=== PATIENT | male | born 1985 | race American Indian/Alaskan Native ===

== ENCOUNTER 2020-01-16 15:48 | Emergency (ER) | payer SELFPAY ==
--- NOTE | 2020-01-16 17:28 | Event Note ---
ED Screening Note Date of service: 01/16/20 Time: 17:24 ED Screening Note: This is a 34 y.o. M. that presents to the ER with left hip pain, right thigh pain, and BLE swelling x 3 days. States calfs feel heavy, tight, and like a cramp is stuck in both legs. Denies CP, SOB, palpitations This initial assessment/diagnostic orders/clinical plan/treatment(s) is/are subject to change based on patients health status, clinical progression and re- assessment by fellow clinical providers in the ED. Further treatment and workup at subsequent clinical providers discretion. Patient/guardian urged not to elope from the ED as their condition may be serious if not clinically assessed and managed. Initial orders include: Doppler BLE
[2020-01-16] MEDS ORDERED: ONDANSETRON 4 MG/2 ML INJ IM ONE (18:33)
[2020-01-16] MEDS ORDERED: MORPHINE 4 MG/1 ML INJ IM ONE (18:33)
--- NOTE | 2020-01-16 18:37 | Emergency Department Report ---
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 Patient also had history of arthritis and gouty arthritis. Patient presented to the ER complaining of back pain, bilateral hip pain and bilateral lower extremity pain and swelling for the last 3 days. Patient denied any recent injury. Patient is a wheelchair ridden. Patient denied any fever or chills. Patient denied any chest pain or shortness of breath. No abdominal pain nausea or vomiting. - Related Data Allergies Allergy/AdvReac Type Severity Reaction Status Date / Time codeine Allergy Unknown Verified 01/16/20 15:56 ED Review of Systems ROS: Stated complaint: UPPER PAIN/RT THIGH PAIN/HIP PAIN Other details as noted in HPI Comment: All other systems reviewed and negative Constitutional: denies: chills, fever Respiratory: denies: shortness of breath Cardiovascular: denies: chest pain Gastrointestinal: denies: abdominal pain, nausea, vomiting Musculoskeletal: back pain, arthralgia, myalgia Neurological: denies: headache, weakness, numbness, paresthesias, confusion ED Past Medical Hx - Social History Smoking Status: Never Smoker Substance Use Type: None ED Physical Exam - General Limitations: No Limitations General appearance: alert, in no apparent distress - Head Head exam: Present: atraumatic, normocephalic, normal inspection - Eye Eye exam: Present: normal appearance - ENT ENT exam: Present: normal exam, normal orophraynx, mucous membranes moist - Neck Neck exam: Absent: normal inspection, tenderness, meningismus, full ROM, lymphadenopathy, thyromegaly - Respiratory Respiratory exam: Present: normal lung sounds bilaterally - Cardiovascular Cardiovascular Exam: Present: regular rate, normal rhythm, normal heart sounds - GI/Abdominal GI/Abdominal exam: Present: soft, normal bowel sounds. Absent: distended, tenderness, guarding, rebound, rigid, organomegaly, bruit, pulsatile mass, hernia - Extremities Exam Extremities exam: Present: normal inspection, full ROM, normal capillary refill. Absent: tenderness, pedal edema, joint swelling, calf tenderness - Back Exam Back exam: Present: normal inspection, full ROM. 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 Patient also had history of arthritis and gouty arthritis. Patient presented to the ER complaining of back pain, bilateral hip pain and bilateral lower extremity pain and swelling for the last 3 days. Patient denied any recent injury. Patient is a wheelchair ridden. Patient denied any fever or chills. Patient denied any chest pain or shortness of breath. No abdominal pain nausea or vomiting. Patient received morphine and Zofran. Patient stated the pain is much better. No Doppler ultrasound study available at night and patient given prescription to return to the hospital tomorrow morning for bilateral lower extremity Doppler ultrasound meanwhile patient given 1 tablets of Xorelto 20 mg p.o. and observed in the ER for more than 2 hours with no bleeding observed. Critical care attestation.: If time is entered above; I have spent that time in minutes in the direct care of this critically ill patient, excluding procedure time. ED Disposition Clinical Impression: Back pain, Swelling of both lower extremities Disposition: - TO HOME OR SELFCARE Is pt being admited?: No Condition: Stable Instructions: Arthralgia (ED) Additional Instructions: Please return to the hospital tomorrow for a Doppler ultrasound to make sure that you do not have any blood clots in your legs. Referrals: PRIMARY CARE, [Primary Care Provider] - 3-5 Days
[2020-01-16] MEDS ORDERED: RIVAROXABAN 20 MG TAB PO ONE (20:00)
[2020-01-16 23:03] VITALS: BP 120/78
--- NOTE | 2020-01-17 11:03 | Vascular Lab Report ---
DUPLEX DOPPLER LOWER EXTREMITY VEINS, BILATERAL INDICATION: Bilateral leg pain and swelling. TECHNIQUE: Duplex doppler imaging was performed through the veins of both lower extremities using venous tonny jaymie and other maneuvers. COMPARISON: None available. FINDINGS: Right Common femoral vein: Negative. Right Superficial femoral vein: Negative. Right Popliteal vein: Negative. Right Calf veins: Negative. Left Common femoral vein: Negative. Left Superficial femoral vein: Negative. Left Popliteal vein: Negative. Left Calf veins: Negative. Additional findings: There is no evidence of a popliteal cyst or other significant abnormality. IMPRESSION: No sonographic evidence for DVT in either lower extremity. Signer Name: Jose Bentley MD Signed: 01/17/2020 10:59 AM Workstation Name: [id number]
== END 2020-01-16 23:03 | disposition home or self-care (01) ==
LOC: ED 15:48
DX: M54.9 Dorsalgia, unspecified (principal); M79.89 Other specified soft tissue disorders; M25.551 Pain in right hip; M25.552 Pain in left hip
CPT/HCPCS: 93970; 96372; 99284; J2270; J2405

== ENCOUNTER 2020-01-20 21:37 | Emergency (ER) | payer MEDICAID ==
--- NOTE | 2020-01-21 00:49 | Emergency Department Report ---
HPI - General Chief Complaint: Back Pain/Injury Time Seen by Provider: 01/21/20 00:00 - HPI HPI: This is a 34-year-old -[place] male with a past medical history of osteogenesis imperfecta, adult dwarfism, gout and schizophrenia, who presents to the emergency department with complaint of mid to low back pain, bilateral hip pain and lower extremity swelling. This been going on since the patient fell backwards in his wheelchair, as he is wheelchair-bound, while on a train 3 weeks ago. The patient was seen here for similar complaints 5 days ago on 01/16/2020. At that time the patient had negative bilateral venous Doppler ultrasounds and was treated with some pain medication and discharged home. The patient denies any further or recent trauma but says that his pain has come back. He also complains of having some panic attacks. Patient treats this with alcohol and says he had 4 margaritas today. He denies any suicidal or homicidal ideations or any hallucinations. ED Past Medical Hx - Past Medical History Previous Medical History?: Yes Hx Hypertension: Yes Hx Psychiatric Treatment: Yes (schizoprenia, depression) Additional medical history: gout, chronic pain. osteogenesis imperfecta - Surgical History Past Surgical History?: Yes Additional Surgical History: knee and back surgery - Social History Smoking Status: Never Smoker Substance Use Type: Alcohol - Medications Home Medications: Home Medications Medication Instructions Recorded Confirmed Last Taken Type Naproxen [Naprosyn] 500 mg PO BID #14 tablet 01/16/20 Unknown Rx ED Review of Systems ROS: Stated complaint: PANIC ATTACK BACK PAIN SWELLING IN BOTH LEGS Other details as noted in HPI Comment: All other systems reviewed and negative Constitutional: denies: chills, fever Eyes: denies: eye pain, vision change ENT: denies: ear pain, throat pain Respiratory: denies: cough, shortness of breath Cardiovascular: denies: chest pain, palpitations Gastrointestinal: denies: nausea, vomiting Genitourinary: denies: dysuria, discharge Musculoskeletal: back pain, arthralgia, myalgia Skin: denies: rash, lesions Neurological: denies: headache, weakness, numbness Physical Exam - Physical Exam Vital Signs: Vital Signs 01/20/20 23:27 Temperature 98.6 F Pulse Rate 89 Respiratory 16 Rate Blood Pressure 154/81 O2 Sat by Pulse 99 Oximetry Physical Exam: GENERAL: The patient is well-developed well-nourished. HENT: Normocephalic. Atraumatic. Patient has moist mucous membranes. EYES: Extraocular motions are intact. NECK: Supple. Trachea is midline. CHEST/LUNGS: Clear to auscultation. There is no respiratory distress noted. HEART/CARDIOVASCULAR: Regular. There is no tachycardia. ABDOMEN: Abdomen is soft, nontender. Patient has normal bowel sounds. SKIN: Skin is warm and dry. NEURO: The patient is awake, alert, and oriented. The patient is cooperative. Normal speech. MUSCULOSKELETAL: There is some tenderness to palpation to the left hip but no obvious acute deformity. BACK: There is no midline thoracic or lumbar tenderness to palpation, step-off or deformity. There is some reproducible left lower thoracic and lumbar paraspinal tenderness to palpation. ED Course Vital Signs 01/20/20 23:27 Temperature 98.6 F Pulse Rate 89 Respiratory 16 Rate Blood Pressure 154/81 O2 Sat by Pulse 99 Oximetry ED Medical Decision Making - Lab Data Result diagrams: 01/21/20 00:28 01/21/20 00:28 - Radiology Data Radiology results: report reviewed BILATERAL HIPS, 3 VIEWS INDICATION / CLINICAL INFORMATION: hip pain, history of osteogenesis imperfecta. COMPARISON: None available. FINDINGS: Left hip: 2 screws are present through the femoral neck. An intramedullary georgiana is present in the left femur. Mild degenerative changes are present in the left hip joint but I see no acute abnormality. The visualized hardware is intact. Right hip: Intramedullary georgiana is present in the right femur. The visualized portion of the georgiana is intact. There is sclerosis of the right superior pubic ramus and a portion of acetabulum which probably indicates old healed fracture. No acute fracture of the pelvis or hips is identified. The bones are demineralized. IMPRESSION: 1. No acute osseous abnormality. 2. Bilateral hip hardware. - Medical Decision Making This patient, with a history of adult dwarfism and osteogenesis imperfecta, presents to the emergency department with a complaint of some left-sided back pain, hip pain and some radiation into the thighs. The patient had a fall out of his wheelchair almost 3 weeks ago and has been evaluated multiple times since then including at this facility 5 days ago. At that time the patient was also complaining of some lower extremity swelling but had bilateral lower extremity venous Doppler ultrasounds that were negative for DVT. Today, the patient had an x-ray done of the bilateral hips and pelvis that did not show any acute osse ous abnormality. His labs were unremarkable including CBC, metabolic panel, CK level and blood alcohol level. Patient was given a dose of pain medication with good improvement of his discomfort. His vital signs been stable throughout his ED course. He appears safe for discharge home at this time. However the patient is homeless and says he will need a bus pass or some transport assistance. - Differential Diagnosis Contusion, fracture, muscle spasms Critical Care Time: No Critical care attestation.: If time is entered above; I have spent that time in minutes in the direct care of this critically ill patient, excluding procedure time. ED Disposition Clinical Impression: Hip pain, bilateral Back pain Qualifiers: Back pain location: back pain in unspecified location Chronicity: unspecified Back pain laterality: left Qualified Code(s): M54.9 - Dorsalgia, unspecified Disposition: DC-01 TO HOME OR SELFCARE Is pt being admited?: No Condition: Stable Instructions: Arthralgia (ED), Back Pain (ED) Additional Instructions: Please follow-up with your primary care physician in the next few days. I am giving you a referral for 2 different local orthopedic groups, Dr. Hernandez and [facility], to follow-up regarding your back and hip pains. Return to the emergency department with any worsening of your symptoms or any acute distress. Referrals: PRIMARY MD ZOE [Primary Care Provider] - 3-5 Days CONCHA HERNANDEZ MD [Staff Physician] - 3-5 Days [facility] [Provider Group] - 3-5 Days Time of Disposition: 02:42
[2020-01-21 00:55] LABS: Basophils % (Auto) 0.4 % (0.0-1.8); Eosinophils # (Auto) 0.4 K/mm3 (0.0-0.4); Eosinophils % (Auto) 7.4 % (0.0-4.3); Hematocrit 33.9 % (35.5-45.6); Hemoglobin 10.5 gm/dl (11.8-15.2); Lymphocytes # (Auto) 2.1 K/mm3 (1.2-5.4); Lymphocytes % (Auto) 43.8 % (13.4-35.0); Mean Corpuscular HGB Conc 31 % (32-34); Mean Corpuscular Volume 73 fl (84-94); Monocytes # (Auto) 0.5 K/mm3 (0.0-0.8); Monocytes % (Auto) 9.5 % (0.0-7.3); Platelet Count 236 K/mm3 (140-440); Red Blood Count 4.62 M/mm3 (3.65-5.03); Red Cell Distribution Width 14.6 % (13.2-15.2)
[2020-01-21 01:10] LABS: BUN/Creatinine Ratio 30; Blood Urea Nitrogen 12 mg/dL (9-20); Calcium 9.5 mg/dL (8.4-10.2); Hemolysis Index 6
[2020-01-21] MEDS ORDERED: MORPHINE 4 MG/1 ML INJ IM ONE (01:44)
--- NOTE | 2020-01-21 01:48 | XRay Report ---
BILATERAL HIPS, 3 VIEWS INDICATION / CLINICAL INFORMATION: hip pain, history of osteogenesis imperfecta. COMPARISON: None available. FINDINGS: Left hip: 2 screws are present through the femoral neck. An intramedullary georgiana is present in the left femur. Mild degenerative changes are present in the left hip joint but I see no acute abnormality. T he visualized hardware is intact. Right hip: Intramedullary georgiana is present in the right femur. The visualized portion of the georgiana is int act. There is sclerosis of the right superior pubic ramus and a portion of acetabulum which probably indicates old healed fracture. No acute fracture of the pelvis or hips is identified. The bones are demineralized. IMPRESSION: 1. No acute osseous abnormality. 2. Bilateral hip hardware. Signer Name: Fay Escudero MD Signed: 01/21/2020 1:43 AM Workstation Name: [id number]
[2020-01-21] MEDS ORDERED: ONDANSETRON 4 MG ODT TAB PO ONE (01:50)
[2020-01-21 08:02] VITALS: BP 136/87
== END 2020-01-21 08:02 | disposition home or self-care (01) ==
LOC: ED 21:37
DX: M25.552 Pain in left hip (principal); M25.551 Pain in right hip; M54.5 Low back pain; I10 Essential (primary) hypertension; F20.9 Schizophrenia, unspecified; F32.9 Major depressive disorder, single episode, unspecified; Z98.890 Other specified postprocedural states; Z79.899 Other long term (current) drug therapy; Z88.8 Allergy status to other drugs, medicaments and biological substances
CPT/HCPCS: 36415; 73521; 80048; 82550; 85025; 96372; 99284; J2270; 80320; G0480; Q0162

== ENCOUNTER 2020-02-26 22:15 | Emergency (ER) | payer MEDICAID ==
[2020-02-26] MEDS ORDERED: oxyCODONE /ACETAMINOPHEN 5-325MG TAB PO ONE (23:43)
[2020-02-26] MEDS ORDERED: predniSONE 20 MG TAB PO ONE (23:43)
--- NOTE | 2020-02-26 23:47 | Emergency Department Report ---
ED General Adult HPI - General Chief complaint: Back Pain/Injury Stated complaint: BACK PAIN HIP PAIN ANXIETY Time Seen by Provider: 02/26/20 23:32 Source: patient Mode of arrival: Wheelchair Limitations: No Limitations - History of Present Illness Initial comments: 34-year-old -French male wheelchair dependent presents emergency department complaining of continued pain to the hip and groin region which is been ongoing for about the last 5 weeks he is under the care of his family practice doctor due to a fall about 5 weeks ago with normal x-rays. He reports no change in his bowel or bladder habits. No change in his sensation or other neurological functions. He reports no dysuria, no hematuria no gastrointestinal changes there is no rashes no possibility of an STD no fever, chills, sweats no chest pain or palpitations no loss of bowel or bladder no saddle paresthesia. Pain is worse with palpation and certain range of motion and ease with anti- inflammatories and pain medication which he is running low at this present time. States that his primary concern is his primary pain control as he does have follow-up arranged. He reports no new injuries no worsening symptoms or no new symptoms since the initial onset - Related Data Previous Rx's Medication Instructions Recorded Last Taken Type Naproxen [Naprosyn] 500 mg PO BID #14 tablet 01/16/20 Unknown Rx Cyclobenzaprine [Flexeril] 10 mg PO QHS PRN #5 tablet 02/16/20 Unknown Rx Naproxen 500 mg PO Q12H PRN #10 tablet 02/16/20 Unknown Rx Allergies Allergy/AdvReac Type Severity Reaction Status Date / Time codeine Allergy Unknown Verified 01/16/20 15:56 ED Review of Systems ROS: Stated complaint: BACK PAIN HIP PAIN ANXIETY Other details as noted in HPI Comment: All other systems reviewed and negative ED Past Medical Hx - Past Medical History Previous Medical History?: Yes Hx Hypertension: Yes Hx Psychiatric Treatment: Yes (schizoprenia, depression) Additional medical history: gout, chronic pain. osteogenesis imperfecta - Surgical History Past Surgical History?: Yes Additional Surgical History: knee and back surgery - Social History Smoking Status: Never Smoker Substance Use Type: Alcohol - Medications Home Medications: Home Medications Medication Instructions Recorded Confirmed Last Taken Type Naproxen [Naprosyn] 500 mg PO BID #14 tablet 01/16/20 Unknown Rx Cyclobenzaprine [Flexeril] 10 mg PO QHS PRN #5 tablet 02/16/20 Unknown Rx Naproxen 500 mg PO Q12H PRN #10 tablet 02/16/20 Unknown Rx ED Physical Exam - General Limitations: No Limitations General appearance: alert, in no apparent distress - Head Head exam: Present: atraumatic, normocephalic - Eye Eye exam: Present: normal appearance - Neck Neck exam: Present: normal inspection - Extremities Exam Extremities exam: Present: tenderness (Tenderness to the left hip and and inguinal region with no lymphadenopathy. No inguinal herniations are noted. No skin issues are noted. No tenderness to the lower abdominal region.) - Neurological Exam Neurological exam: Present: alert, CN II-XII intact ED Course Vital Signs 02/26/20 22:24 Temperature 98.0 F Pulse Rate 102 H Respiratory 20 Rate Blood Pressure 137/80 O2 Sat by Pulse 99 Oximetry ED Medical Decision Making - Medical Decision Making 34-year-old male with chronic pain to his left hip is under the care of his primary care provider with follow-up arranged seeking analgesic control of his hip with no new or worsening since his symptoms no change in symptoms regarding his hip. He reports no urinary symptoms no recent injury. Rx indicate he has a pre-existing hip hardware which was abnormal of variation in January 2020 he was in the emergency department and 10 days ago with back pain had a normal thoracic x-ray and questionable coccyx fracture on the lumbar series. Again Mr. Hills reports no new or worsening symptoms no change in symptoms since his initial onset Critical care attestation.: If time is entered above; I have spent that time in minutes in the direct care of this critically ill patient, excluding procedure time. ED Disposition Clinical Impression: Chronic pain, Hip pain Disposition: DC-01 TO HOME OR SELFCARE Is pt being admited?: No Does the pt Need Aspirin: No Condition: Stable Instructions: Arthralgia (ED) Additional Instructions: Please return to your primary care provider for further evaluation and treatment options Referrals: JENNY RAMIREZ MD [Primary Care Provider] - 3-5 Days
[2020-02-27 05:35] VITALS: BP 136/85
== END 2020-02-27 05:28 | disposition home or self-care (01) ==
LOC: ED 22:15
DX: M25.552 Pain in left hip (principal); R10.32 Left lower quadrant pain; G89.29 Other chronic pain; I10 Essential (primary) hypertension; F20.89 Other schizophrenia; F32.89 Other specified depressive episodes; M10.9 Gout, unspecified; Z98.890 Other specified postprocedural states; Z79.899 Other long term (current) drug therapy; Z88.6 Allergy status to analgesic agent
CPT/HCPCS: 99282; J7512

== ENCOUNTER 2020-03-04 19:52 | Emergency (ER) | payer MEDICAID ==
[2020-03-04 20:01] VITALS: BP 151/94
[2020-03-05] MEDS ORDERED: ACETAMINOPHEN 325 MG TAB PO ONE (01:04)
--- NOTE | 2020-03-05 01:04 | Emergency Department Report ---
Chief Complaint: Back Pain/Injury Stated Complaint: UPPER/LOWER BACK PAIN Time Seen by Provider: 03/05/20 01:02 - HPI History of Present Illness: Patient is a 34-year-old male who presents emergency room with complaints of upper and lower back pain that began "over a month ago." Patient has been evaluated in the emergency department on multiple occasions for the same complaints. He denies any new fall or injury. He denies any numbness, weakness, bowel or bladder incontinence, saddle numbness, fever, n/v/d. He reports that he had a telemedicine visit with an orthopedic last week, I inquired what the plan was for his chronic back pain, and patient did not have an answer whether he was going to physical therapy or spine injections or any treatments. He has not tried taking any medications for his symptoms. Initial triage vitals with tachycardia, on repeat heart rate is completely normal Upon entering the room patient is sleeping comfortably On exam: Non toxic appearing, no acute distress atraumatic, normocephalic normal appearance of the eyes, PERRL, EOMI, no periorbital edema or ecchymosis moist mucus membranes regular heart rate and rhythm, no gallops, no rubs, no murmurs breath sounds are clear bilaterally, no w/r/r No midline spinal C-spine, T-spine, L-spine tenderness to palpation, no step- offs, no deformities A&O x4, no focal neuro deficit skin is warm, dry, intact Patient has no red flag warning signs of back pain No midline tenderness, no neuro deficits No signs of conus medullaris or cauda equina No fever, no IV drug use Patient is presenting with chronic back pain He has not attempted any treatments Patient will be given Tylenol discussed supportive care and symptomatic treatment with patient Patient will again be referred to orthopedic doctor for further evaluation and management Medical screening examination performed and there is no threat to life or limb at this time - Exam Vital Signs: Vital Signs 03/04/20 19:57 Temperature 98.1 F Pulse Rate 118 H Respiratory 18 Rate Blood Pressure 151/94 O2 Sat by Pulse 100 Oximetry MSE screening note: Focused history and physical exam performed. ED Disposition for MSE Clinical Impression: Chronic back pain Qualifiers: Back pain location: back pain in other location Qualified Code(s): M54.9 - Dorsalgia, unspecified Disposition: Z-07 MED SCREENING EXAM-LEFT Condition: Stable Instructions: Chronic Back Pain (ED) Additional Instructions: May alternate Tylenol or ibuprofen as needed for pain. May use ice pack, heating pad, rest. Follow-up with orthopedic doctor. It is very important that you follow-up with orthopedic doctor for further evaluation and management. Return to emergency room for any new or worsening symptoms. Referrals: CONCHA FAM MD [Staff Physician] - 3-5 Days [facility] [Provider Group] - 3-5 Days asya, orthopedic [Other] - 3-5 Days Time of Disposition: 01:04 Print Language: GERMAN
== END 2020-03-05 01:11 | disposition left against medical advice (07) ==
LOC: ED 19:52
DX: M54.89 Other dorsalgia (principal); G89.29 Other chronic pain
CPT/HCPCS: 99281

== ENCOUNTER 2020-04-23 20:55 | Emergency (ER) | payer MEDICAID ==
[2020-04-23] MEDS ORDERED: dexAMETHasone 20 MG/5 ML VIAL IM ONE (21:58)
[2020-04-23] MEDS ORDERED: KETOROLAC 30 MG/1 ML INJ IM ONE (21:58)
[2020-04-23] MEDS ORDERED: MORPHINE 15 MG TAB PO ONE (21:59)
--- NOTE | 2020-04-23 23:40 | Emergency Department Report ---
ED Back Pain/Injury HPI - General Chief Complaint: Extremity Injury, Lower Stated Complaint: BACK PAIN/FOOT PAIN/ Source: patient Limitations: No Limitations - History of Present Illness Initial Comments: Patient is a 34-year-old -[place] male with a history of spina bifida and chronic low back pain and who is dependent on a wheelchair for ambulation who presents to the ED with complaint of acute exhibition of his chronic low back pain that radiates to his bilateral lower extremities after straining in his wheelchair about 2 days ago. Patient states that he usually takes Percocet 10-325 mg and gabapentin but that since twisting his back 2 days ago these medications have not helped control his pain. Patient states that he has an appointment with his pain clinic in 1 week's time. Patient denies dysuria, urinary frequency and urgency, dizziness, syncope, chest pain, shortness of breath, testicular pain, urinary or bowel incontinence, fall, traumatic injury, numbness and tingling or weakness of lower extremities bilaterally, fever, chills, abdominal pain or syncope. MD Complaint: back pain, other (Low back pain that radiates to the lower extremities bilaterally) -: Sudden, days(s) (2) Place: home Radiation: left leg, right leg Severity: severe Severity scale (0 -10): 8 Quality: sharp, aching Consistency: constant Improves With: none Worsens With: movement Context: turning/twisting Associated Symptoms: denies other symptoms, difficulty walking (wheel-chair bound due to chronic cerebral palsy). denies: confusion, weakness, numbness, cough, difficulty urinating, diaphoresis, fever/chills, headaches, abdominal pain, loss of appetite, nausea/vomiting, rash, shortness of breath, syncope Treatments Prior to Arrival: prescription analgesics (Percocet 10-325mg and Gabapentin) - Related Data Home Medications Medication Instructions Recorded Confirmed Last Taken FLUoxetine [PROzac] 20 mg PO QDAY 04/03/20 04/03/20 Unknown Gabapentin [Neurontin] 100 mg PO Q8HR 04/03/20 04/03/20 Unknown HYDROcodone/APAP 10-325 [[place] 1 each PO Q6HR PRN 04/03/20 04/03/20 Unknown 10/325] Losartan/Hydrochlorothiazide 1 each PO DAILY 04/03/20 04/03/20 Unknown [Losartan-Hctz 50-12.5 mg Tab] Metoprolol Tartrate [Lopressor] 100 mg PO DAILY 04/03/20 04/03/20 Unknown OLANzapine [ZyPREXA] 10 mg PO DAILY 04/03/20 04/03/20 Unknown Prazosin HCl 2 mg PO BID 04/03/20 04/03/20 Unknown Tizanidine HCl [Zanaflex 2mg CAP] 2 mg PO Q8H PRN 04/03/20 04/03/20 Unknown Previous Rx's Medication Instructions Recorded Last Taken Type Naproxen [Naprosyn] 500 mg PO BID #14 tablet 01/16/20 Unknown Rx Naproxen 500 mg PO Q12H PRN #20 tablet 04/23/20 Unknown Rx tiZANidine [Zanaflex 4mg TAB] 4 mg PO Q8H PRN #15 tablet 04/23/20 Unknown Rx Allergies Allergy/AdvReac Type Severity Reaction Status Date / Time codeine Allergy Unknown Verified 01/16/20 15:56 ED Review of Systems ROS: Stated complaint: BACK PAIN/FOOT PAIN/ Other details as noted in HPI Constitutional: denies: chills, fever Eyes: denies: eye pain, eye discharge, vision change ENT: denies: ear pain, throat pain Respiratory: denies: cough, shortness of breath, wheezing Cardiovascular: denies: chest pain, palpitations Endocrine: no symptoms reported Gastrointestinal: denies: abdominal pain, nausea, diarrhea Genitourinary: denies: urgency, dysuria Musculoskeletal: back pain (Low back pain), arthralgia (bilateral LE pain). denies: joint swelling Skin: denies: rash, lesions Neurological: denies: headache, weakness, paresthesias Psychiatric: denies: anxiety, depression Hematological/Lymphatic: denies: easy bleeding, easy bruising ED Past Medical Hx - Past Medical History Previous Medical History?: Yes Hx Hypertension: Yes Hx Psychiatric Treatment: Yes (schizoprenia, depression) Additional medical history: gout, chronic pain, neuropathy. osteogenesis imperfecta - Surgical History Past Surgical History?: Yes Additional Surgical History: knee and back surgery - Social History Smoking Status: Former Smoker Substance Use Type: Alcohol - Medications Home Medications: Home Medications Medication Instructions Recorded Confirmed Last Taken Type Naproxen [Naprosyn] 500 mg PO BID #14 tablet 01/16/20 04/03/20 Unknown Rx FLUoxetine [PROzac] 20 mg PO QDAY 04/03/20 04/03/20 Unknown History Gabapentin [Neurontin] 100 mg PO Q8HR 04/03/20 04/03/20 Unknown History HYDROcodone/APAP 10-325 [[place] 1 each PO Q6HR PRN 04/03/20 04/03/20 Unknown History 10/325] Losartan/Hydrochlorothiazide 1 each PO DAILY 04/03/20 04/03/20 Unknown History [Losartan-Hctz 50-12.5 mg Tab] Metoprolol Tartrate [Lopressor] 100 mg PO DAILY 04/03/20 04/03/20 Unknown History OLANzapine [ZyPREXA] 10 mg PO DAILY 04/03/20 04/03/20 Unknown History Prazosin HCl 2 mg PO BID 04/03/20 04/03/20 Unknown History Tizanidine HCl [Zanaflex 2mg CAP] 2 mg PO Q8H PRN 04/03/20 04/03/20 Unknown History Naproxen 500 mg PO Q12H PRN #20 tablet 04/23/20 Unknown Rx tiZANidine [Zanaflex 4mg TAB] 4 mg PO Q8H PRN #15 tablet 04/23/20 Unknown Rx ED Physical Exam - General Limitations: No Limitations General appearance: alert, in no apparent distress - Head Head exam: Present: atraumatic, normocephalic, normal inspection - Eye Eye exam: Present: normal appearance, PERRL, EOMI Pupils: Present: normal accommodation - ENT ENT exam: Present: normal exam, normal orophraynx, mucous membranes moist, TM's normal bilaterally, normal external ear exam - Neck Neck exam: Present: normal inspection, full ROM. Absent: tenderness - Respiratory Respiratory exam: Present: normal lung sounds bilaterally. Absent: respiratory distress, wheezes, rales, rhonchi, chest wall tenderness, accessory muscle use, prolonged expiratory - Cardiovascular Cardiovascular Exam: Present: regular rate, normal rhythm, normal heart sounds. Absent: systolic murmur, diastolic murmur, rubs, gallop - GI/Abdominal GI/Abdominal exam: Present: soft, normal bowel sounds. Absent: tenderness, guarding, hyperactive bowel sounds - Extremities Exam Extremities exam: Present: normal inspection, full ROM, tenderness (Bilateral hip tenderness), normal capillary refill - Back Exam Back exam: Present: normal inspection, full ROM, tenderness (Palpable lumbosacral paraspinal musculoskeletal tenderness), muscle spasm, paraspinal tenderness - Neurological Exam Neurological exam: Present: alert, oriented X3, CN II-XII intact, normal gait, abnormal gait (Wheel-chair dependent due to chronic cerebral palsy and chronic back pain), reflexes normal - Psychiatric Psychiatric exam: Present: normal affect, normal mood - Skin Skin exam: Present: warm, dry, intact, normal color. Absent: rash ED Course Vital Signs 04/23/20 04/23/20 21:04 23:50 Temperature 97.5 F L 97.8 F Pulse Rate 82 79 Respiratory 18 16 Rate Blood Pressure 147/81 Blood Pressure 139/76 [Right] O2 Sat by Pulse 99 98 Oximetry ED Medical Decision Making - Medical Decision Making This is a 34-year-old -[place] male with a history of spina bifida and chronic low back pain and who is dependent on a wheelchair for ambulation who presents to the ED with complaint of acute exhibition of his chronic low back pain that radiates to his bilateral lower extremities after straining in his wheelchair about 2 days ago. Patient states that he usually takes Percocet 10- 325 mg and gabapentin but that since twisting his back 2 days ago these medications have not helped control his pain. Patient states that he has an appointment with his pain clinic in 1 week's time. In the ED, patient is alert and oriented x3 and is not in any distress. Patient was treated for pain in the ED and on reevaluation, patient's pain is well controlled with medications. Patient was discharged home and advised to follow-up with his primary care physician or pain clinic for further evaluation in 2 to 3 days. Patient was also advised to continue taking his regular pain medications. Patient was advised to return to the ED immediately if symptoms get worse. - Differential Diagnosis Muscle spasm; lumbar radiculopathy; chronic DJD; Chronic pain Critical care attestation.: If time is entered above; I have spent that time in minutes in the direct care of this critically ill patient, excluding procedure time. ED Disposition Clinical Impression: Spasm of muscle of lower back Chronic low back pain with bilateral sciatica Qualifiers: Back pain laterality: bilateral Qualified Code(s): M54.42 - Lumbago with sciatica, left side Disposition: TO HOME OR SELFCARE Is pt being admited?: No Does the pt Need Aspirin: No Condition: Stable Instructions: Lumbar Radiculopathy (ED), Arthralgia (ED), Muscle Spasm (ED) Additional Instructions: Take your regular pain medication with food, drink plenty of fluids and follow- up with your primary care physician in 7 to 10 days for reevaluation. Return to the ED immediately if symptoms get worse. Prescriptions: Naproxen 500 mg PO Q12H PRN #20 tablet PRN Reason: Pain , Severe (7-10) tiZANidine [Zanaflex 4mg TAB] 4 mg PO Q8H PRN #15 tablet PRN Reason: Muscle Spasm Referrals: [facility] [Provider Group] - 3-5 Days [facility] [Outside] - 3-5 Days Time of Disposition: 23:50 Print Language: ARABIC
[2020-04-24 00:02] VITALS: BP 139/76
== END 2020-04-24 | disposition home or self-care (01) ==
LOC: ED 20:55
DX: M54.42 Lumbago with sciatica, left side (principal); M54.41 Lumbago with sciatica, right side; I10 Essential (primary) hypertension; F20.9 Schizophrenia, unspecified; Z98.890 Other specified postprocedural states; Z87.891 Personal history of nicotine dependence; Z88.8 Allergy status to other drugs, medicaments and biological substances; Z79.899 Other long term (current) drug therapy
CPT/HCPCS: 96372; 99282; J1100; J1885

== ENCOUNTER 2020-06-01 19:11 | Emergency (ER) | payer MEDICAID ==
--- NOTE | 2020-06-01 20:36 | Emergency Department Report ---
ED Back Pain/Injury HPI - General Chief Complaint: Back Pain/Injury Stated Complaint: LEG AND BACK PAIN Time Seen by Provider: 06/01/20 20:27 Source: patient Limitations: No Limitations, Physical Limitation - History of Present Illness Initial Comments: This is a 34-year-old male nontoxic, well nourished in appearance, no acute signs of distress presents to the ED with c/o of acute on chronic lower back pain x "many" years. PMH includes chronic back pains, DJD of lumbar spine, neuropathy, osteogenesis imperfecta. Patient states has history of sciatica nerve pain which is similar symptoms as today. Patient states that pain radiates through to his right lower extremity. Patient denies any trauma. Denies any bladder or bowel instability. Patient denies any urinary symptoms. Denies any fever, chills, nausea, vomiting, headache, stiff neck, chest pain or shortness of breath. Patient denies any numbness or tingling. PMH includes codeine. MD Complaint: back pain -: year(s) Similar Symptoms Previously: Yes Radiation: right leg Severity: mild Severity scale (0 -10): 3 Quality: aching Consistency: intermittent Improves With: immobilization, sitting upright Worsens With: movement, walking Context: while lifting, turning/twisting Associated Symptoms: denies other symptoms. denies: confusion, weakness, chest pain, numbness, difficulty walking, cough, difficulty urinating, diaphoresis, incontinence, fever/chills, constipation, headaches, abdominal pain, loss of appetite, malaise, nausea/vomiting, rash, seizure, shortness of breath, syncope - Related Data Home Medications Medication Instructions Recorded Confirmed Last Taken FLUoxetine [PROzac] 20 mg PO QDAY 04/03/20 05/01/20 Unknown Gabapentin [Neurontin] 300 mg PO Q8HR 04/03/20 05/01/20 Unknown Losartan/Hydrochlorothiazide 1 each PO DAILY 04/03/20 05/01/20 Unknown [Losartan-Hctz 50-12.5 mg Tab] Metoprolol Tartrate [Lopressor] 100 mg PO DAILY 04/03/20 05/01/20 Unknown OLANzapine [ZyPREXA] 10 mg PO DAILY 04/03/20 05/01/20 Unknown Colchicine 0.6 mg PO DAILY 05/01/20 05/01/20 Unknown Prazosin HCl 2 mg PO DAILY 05/01/20 05/01/20 Unknown traZODone 50 mg PO DAILY 05/01/20 05/01/20 Unknown Previous Rx's Medication Instructions Recorded Last Taken Type tiZANidine [Zanaflex 4mg TAB] 4 mg PO Q8H PRN #15 tablet 04/23/20 Unknown Rx FLUoxetine HCL [FLUoxetine] 30 mg PO DAILY #60 tablet 05/03/20 Unknown Rx OLANZapine [Zyprexa] 15 mg PO DAILY #30 tablet 05/03/20 Unknown Rx Allergies Allergy/AdvReac Type Severity Reaction Status Date / Time codeine Allergy Unknown Verified 01/16/20 15:56 ED Review of Systems ROS: Stated complaint: LEG AND BACK PAIN Other details as noted in HPI Constitutional: denies: chills, fever Eyes: denies: eye pain, eye discharge, vision change ENT: denies: ear pain, throat pain Respiratory: denies: cough, shortness of breath, wheezing Cardiovascular: denies: chest pain, palpitations Endocrine: no symptoms reported Gastrointestinal: denies: abdominal pain, nausea, diarrhea Genitourinary: denies: urgency, dysuria Musculoskeletal: back pain. denies: joint swelling, arthralgia Skin: denies: rash, lesions Neurological: denies: headache, weakness, paresthesias Psychiatric: denies: anxiety, depression Hematological/Lymphatic: denies: easy bleeding, easy bruising ED Past Medical Hx - Past Medical History Previous Medical History?: Yes Hx Hypertension: Yes Hx Psychiatric Treatment: Yes (schizoprenia, depression) Additional medical history: gout, chronic pain, neuropathy. osteogenesis imperfecta - Surgical History Past Surgical History?: Yes Additional Surgical History: knee and back surgery - Social History Smoking Status: Never Smoker Substance Use Type: Alcohol - Medications Home Medications: Home Medications Medication Instructions Recorded Confirmed Last Taken Type FLUoxetine [PROzac] 20 mg PO QDAY 04/03/20 05/01/20 Unknown History Gabapentin [Neurontin] 300 mg PO Q8HR 04/03/20 05/01/20 Unknown History Losartan/Hydrochlorothiazide 1 each PO DAILY 04/03/20 05/01/20 Unknown History [Losartan-Hctz 50-12.5 mg Tab] Metoprolol Tartrate [Lopressor] 100 mg PO DAILY 04/03/20 05/01/20 Unknown History OLANzapine [ZyPREXA] 10 mg PO DAILY 04/03/20 05/01/20 Unknown History tiZANidine [Zanaflex 4mg TAB] 4 mg PO Q8H PRN #15 tablet 04/23/20 05/01/20 Unknown Rx Colchicine 0.6 mg PO DAILY 05/01/20 05/01/20 Unknown History Prazosin HCl 2 mg PO DAILY 05/01/20 05/01/20 Unknown History traZODone 50 mg PO DAILY 05/01/20 05/01/20 Unknown History FLUoxetine HCL [FLUoxetine] 30 mg PO DAILY #60 tablet 05/03/20 Unknown Rx OLANZapine [Zyprexa] 15 mg PO DAILY #30 tablet 05/03/20 Unknown Rx ED Physical Exam - General Limitations: No Limitations, Physical Limitation General appearance: alert, in no apparent distress - Head Head exam: Present: atraumatic, normocephalic - Eye Eye exam: Present: normal appearance - Neck Neck exam: Present: normal inspection, full ROM. Absent: tenderness, meningismus, lymphadenopathy - Rectal Rectal exam: Present: normal inspection, other (no ulcers to buttock area. no redness. no skin break down. ) - Extremities Exam Extremities exam: Present: normal inspection, full ROM, tenderness, normal capillary refill. Absent: joint swelling, calf tenderness - Back Exam Back exam: Present: normal inspection, full ROM, paraspinal tenderness (right lumbar paraspinal). Absent: tenderness, CVA tenderness (R), CVA tenderness (L), muscle spasm, vertebral tenderness, rash noted - Neurological Exam Neurological exam: Present: alert, oriented X3 - Psychiatric Psychiatric exam: Present: normal affect, normal mood - Skin Skin exam: Present: warm, dry, intact, normal color. Absent: rash ED Course Vital Signs 06/01/20 20:36 Temperature 98.4 F Pulse Rate 62 Respiratory 18 Rate Blood Pressure 143/76 O2 Sat by Pulse 97 Oximetry - Reevaluation(s) Reevaluation #1: 06/01/20 21:23 Patient is speaking in full sentences with no signs of distress noted. ED Medical Decision Making - Medical Decision Making This is a 34-year-old male that presents with chronic back pain. Patient is stable was examined by me. There is no spinal tenderness. There is no cauda equina syndrome during examination. No bladder or bowel instability. Patient was referred to Follow-up with a primary care doctor in 3-5 days or if symptoms worsen and continue return to emergency room as soon as possible. At time of discharge, the patient does not seem toxic or ill in appearance. No acute signs of distress noted. Patient agrees to discharge treatment plan of care. No further questions noted by the patient. This chart is dictated with using [employer] Critical care attestation.: If time is entered above; I have spent that time in minutes in the direct care of this critically ill patient, excluding procedure time. ED Disposition Clinical Impression: Chronic back pain Qualifiers: Back pain location: low back pain Back pain laterality: right Sciatica presence: with sciatica Sciatica laterality: sciatica of right side Qualified Code(s): M54.41 - Lumbago with sciatica, right side Sciatica Qualifiers: Laterality: right Qualified Code(s): M54.31 - Sciatica, right side Disposition: MED SCREENING EXAM-LEFT Is pt being admited?: No Does the pt Need Aspirin: No Condition: Stable Instructions: Chronic Back Pain (ED) Additional Instructions: Follow-up with a primary care doctor in 3-5 days or if symptoms worsen and continue return to the ED as soon as possible. Referrals: PRIMARY MD ZOE [Referring] - 3-5 Days ZACHARY LINDSEY MD [Staff Physician] - 3-5 Days
[2020-06-01 20:37] VITALS: BP 143/76
== END 2020-06-01 20:40 | disposition left against medical advice (07) ==
LOC: ED 19:11
DX: M54.31 Sciatica, right side (principal); I10 Essential (primary) hypertension; F20.9 Schizophrenia, unspecified; F32.9 Major depressive disorder, single episode, unspecified; Z79.899 Other long term (current) drug therapy; Z88.8 Allergy status to other drugs, medicaments and biological substances; Z53.21 Procedure and treatment not carried out due to patient leaving prior to being seen by health care provider

== ENCOUNTER 2020-08-18 17:36 | Emergency (ER) | payer MEDICAID ==
--- NOTE | 2020-08-18 17:54 | Emergency Department Report ---
Blank Doc - Documentation Documentation: 35-year-old male that presents with right hip and lower back pain s/p fall. D enies any other injuries or trauma. This initial assessment/diagnostic orders/clinical plan/treatment(s) is/are subject to change based on patient's health status, clinical progression and re-assessment by fellow clinical providers in the ED. Further treatment and workup at subsequent clinical providers discretion. Patient/guardians urged not to elope from the ED as their condition may be serious if not clinically assessed and managed. Initial orders include: 1- Patient sent to [facility] for further evaluation and treatment 2- xrays
--- NOTE | 2020-08-18 18:33 | XRay Report ---
LUMBAR SPINE 3 VIEWS INDICATION: Low back pain after fall. COMPARISON: Lumbar spine series from 02/16/2020. FINDINGS: VERTEBRAE: The bones are similarly demineralized with stable alignment and [place] fixation. No acute fra cture. DISC SPACES: Stable generalized discogenic degenerative changes. FACET JOINTS: Stable facet hypertrophy along the lower lumbar spine. SOFT TISSUES: No significant abnormality. ADDITIONAL FINDINGS: Stable internal fixation of the left hip. IMPRESSION: 1. No acute findings or significant interval changes. Signer Name: Patrick Murphy MD Signed: 08/18/2020 6:28 PM Workstation Name: [id number]
--- NOTE | 2020-08-18 18:34 | XRay Report ---
RIGHT HIP 2 VIEWS INDICATION / CLINICAL INFORMATION: Right hip pain after fall. COMPARISON: Bilateral hips series from 01/21/2020. FINDINGS: BONES and JOINT(S): No acute fracture or subluxation. The bones are similarly demineralized. There is stable lumbar spondylosis. Internal fixation of the left hip, right femur and the spine is unchanged . SOFT TISSUES: No significant abnormality. ADDITIONAL FINDINGS: None. IMPRESSION: 1. No acute findings or significant interval changes. Signer Name: Patrick Murphy MD Signed: 08/18/2020 6:29 PM Workstation Name: [id number]
[2020-08-19] MEDS ORDERED: IBUPROFEN 600 MG TAB PO ONE (04:34)
[2020-08-19] MEDS ORDERED: ONDANSETRON 4 MG ODT TAB PO ONE (04:34)
[2020-08-19] MEDS ORDERED: HYDROcodone/ACETAMINOPHEN 5-325 MG TAB PO ONE (04:34)
--- NOTE | 2020-08-19 04:49 | Emergency Department Report ---
ED Fall HPI - General Chief Complaint: Fall Stated Complaint: LOWER BACK/COCCYX PAIN/RT HIP PAIN Time Seen by Provider: 08/18/20 17:53 Source: patient Mode of arrival: Wheelchair - History of Present Illness Initial Comments: Patient is a 35-year-old -Maltese male with a history of schizophrenia, anxiety and depression, chronic bilateral peripheral neuropathy, chronic low back pain and wheelchair-bound due to chronic low back pain and bilateral chronic bilateral lower extremity deformity due to chronic osteogenesis imperfecta syndrome who presents to the ED with complaint of acute exacerbation of his chronic low back pain and right hip pain after slipping off of his wheelchair 3 weeks ago in [place] and falling on concrete ground. Patient states that he was initially evaluated in [place] where he had been visiting and was told that he has coccygeal fracture and has been taking ibuprofen as needed for pain. Patient states that in the last 4 days, the pain has been worsening in his right hip and lower back. Patient denies new injuries or fall, chest pain, shortness of breath, testicular pain, numbness and tingling or weakness of lower extremities bilaterally, urinary or bowel incontinence and saddle paresthesia, fever or chills, nausea and vomiting and abdominal pain. MD Complaint: fall -: Sudden, week(s) (3) Fall From: wheelchair When Fall Occurred: other (3 weeks ago in [place]) Fall Witnessed: yes, by bystander Place Fall Occurred: street Loss of Consciousness: none Prolonged Down Time?: no Symptoms Prior to Fall: none Location: back (lower), pelvis (right hip) Severity: severe Severity scale (0 -10): 7 Quality: sharp, aching Context: tripped/slipped Associated Symptoms: denies. denies: headache, neck pain, numbness, weakness, chest paint, shortness of breath, abdominal pain, hematuria, unable to walk, lightheaded, vertigo, confusion, other - Related Data Home Medications Medication Instructions Recorded Confirmed Last Taken FLUoxetine [PROzac] 20 mg PO QDAY 04/03/20 05/01/20 Unknown Gabapentin [Neurontin] 300 mg PO Q8HR 04/03/20 05/01/20 Unknown Losartan/Hydrochlorothiazide 1 each PO DAILY 04/03/20 05/01/20 Unknown [Losartan-Hctz 50-12.5 mg Tab] Metoprolol Tartrate [Lopressor] 100 mg PO DAILY 04/03/20 05/01/20 Unknown OLANzapine [ZyPREXA] 10 mg PO DAILY 04/03/20 05/01/20 Unknown Colchicine 0.6 mg PO DAILY 05/01/20 05/01/20 Unknown Prazosin HCl 2 mg PO DAILY 05/01/20 05/01/20 Unknown traZODone 50 mg PO DAILY 05/01/20 05/01/20 Unknown Previous Rx's Medication Instructions Recorded Last Taken Type tiZANidine [Zanaflex 4mg TAB] 4 mg PO Q8H PRN #15 tablet 04/23/20 Unknown Rx FLUoxetine HCL [FLUoxetine] 30 mg PO DAILY #60 tablet 05/03/20 Unknown Rx OLANZapine [Zyprexa] 15 mg PO DAILY #30 tablet 05/03/20 Unknown Rx Ibuprofen [Motrin] 800 mg PO Q8HR PRN #30 tablet 08/19/20 Unknown Rx methOCARBAMOL [Robaxin TAB] 500 mg PO Q12H PRN #24 tab 08/19/20 Unknown Rx traMADoL [Ultram] 50 mg PO Q6HR PRN #12 tablet 08/19/20 Unknown Rx Allergies Allergy/AdvReac Type Severity Reaction Status Date / Time codeine Allergy Unknown Verified 01/16/20 15:56 ED Review of Systems ROS: Stated complaint: LOWER BACK/COCCYX PAIN/RT HIP PAIN Other details as noted in HPI Constitutional: denies: chills, fever Eyes: denies: eye pain, eye discharge, vision change ENT: denies: ear pain, throat pain Respiratory: denies: cough, shortness of breath, wheezing Cardiovascular: denies: chest pain, palpitations Endocrine: no symptoms reported Gastrointestinal: denies: abdominal pain, nausea, diarrhea Genitourinary: denies: urgency, dysuria Musculoskeletal: back pain (Low back pain), arthralgia (Right hip pain), myalgia. denies: joint swelling Skin: denies: rash, lesions Neurological: denies: headache, weakness, paresthesias Psychiatric: denies: anxiety, depression Hematological/Lymphatic: denies: easy bleeding, easy bruising ED Past Medical Hx - Past Medical History Previous Medical History?: Yes Hx Hypertension: Yes Hx Psychiatric Treatment: Yes (schizoprenia, depression) Additional medical history: gout, chronic pain, neuropathy. osteogenesis imperfecta - Surgical History Past Surgical History?: Yes Additional Surgical History: knee and back surgery - Social History Smoking Status: Never Smoker Substance Use Type: None - Medications Home Medications: Home Medications Medication Instructions Recorded Confirmed Last Taken Type FLUoxetine [PROzac] 20 mg PO QDAY 04/03/20 05/01/20 Unknown History Gabapentin [Neurontin] 300 mg PO Q8HR 04/03/20 05/01/20 Unknown History Losartan/Hydrochlorothiazide 1 each PO DAILY 04/03/20 05/01/20 Unknown History [Losartan-Hctz 50-12.5 mg Tab] Metoprolol Tartrate [Lopressor] 100 mg PO DAILY 04/03/20 05/01/20 Unknown History OLANzapine [ZyPREXA] 10 mg PO DAILY 04/03/20 05/01/20 Unknown History tiZANidine [Zanaflex 4mg TAB] 4 mg PO Q8H PRN #15 tablet 04/23/20 05/01/20 Unknown Rx Colchicine 0.6 mg PO DAILY 05/01/20 05/01/20 Unknown History Prazosin HCl 2 mg PO DAILY 05/01/20 05/01/20 Unknown History traZODone 50 mg PO DAILY 05/01/20 05/01/20 Unknown History FLUoxetine HCL [FLUoxetine] 30 mg PO DAILY #60 tablet 05/03/20 Unknown Rx OLANZapine [Zyprexa] 15 mg PO DAILY #30 tablet 05/03/20 Unknown Rx Ibuprofen [Motrin] 800 mg PO Q8HR PRN #30 tablet 08/19/20 Unknown Rx methOCARBAMOL [Robaxin TAB] 500 mg PO Q12H PRN #24 tab 08/19/20 Unknown Rx traMADoL [Ultram] 50 mg PO Q6HR PRN #12 tablet 08/19/20 Unknown Rx ED Physical Exam - General Limitations: No Limitations General appearance: alert, in no apparent distress - Head Head exam: Present: atraumatic, normocephalic, normal inspection - Eye Eye exam: Present: normal appearance, PERRL, EOMI Pupils: Present: normal accommodation - ENT ENT exam: Present: normal exam, normal orophraynx, mucous membranes moist, TM's normal bilaterally, normal external ear exam - Neck Neck exam: Present: normal inspection, full ROM - Respiratory Respiratory exam: Present: normal lung sounds bilaterally. Absent: respiratory distress, wheezes, rales, rhonchi, stridor, chest wall tenderness, accessory muscle use, decreased breath sounds, prolonged expiratory - Cardiovascular Cardiovascular Exam: Present: regular rate, normal rhythm, normal heart sounds. Absent: systolic murmur, diastolic murmur, rubs, gallop - GI/Abdominal GI/Abdominal exam: Present: soft, normal bowel sounds. Absent: distended, tenderness, guarding, hyperactive bowel sounds, hypoactive bowel sounds, mass - Extremities Exam Extremities exam: Present: normal inspection, full ROM, tenderness (Palpable ri ght hip tenderness), normal capillary refill, other (Bilateral lower extremity deformity due to chronic baseline osteogenesis imperfecta deformities) - Back Exam Back exam: Present: normal inspection, full ROM, tenderness (Palpable lumbosacral paraspinal musculoskeletal tenderness), muscle spasm, paraspinal tenderness - Neurological Exam Neurological exam: Present: alert, oriented X3, CN II-XII intact, reflexes normal, other (Wheelchair-bound due to chronic baseline osteogenesis imperfecta with deformities to the lower extremities bilaterally) - Psychiatric Psychiatric exam: Present: normal affect, normal mood - Skin Skin exam: Present: warm, dry, intact, normal color. Absent: rash ED Course Vital Signs 08/18/20 17:55 Temperature 97.7 F Pulse Rate 81 Respiratory 20 Rate Blood Pressure 135/67 O2 Sat by Pulse 96 Oximetry ED Medical Decision Making - Radiology Data Radiology results: report reviewed, image reviewed Findings [facility] [address] [place] [address] XRay Report Signed Patient: DANK NOLAND MR#: [id number] : 1985 Acct:[id number] Age/Sex: 35 / M ADM Date: 08/18/20 Loc: ED Attending Dr: Ordering Physician: ANSELMO DE GUZMAN NP Date of Service: 08/18/20 Procedure(s): XR spine lumbosacral 2-3V Accession Number(s): [id number] cc: ANSELMO DE GUZMAN NP Fluoro Time In Minutes: LUMBAR SPINE 3 VIEWS INDICATION: Low back pain after fall. COMPARISON: Lumbar spine series from 02/16/2020. FINDINGS: VERTEBRAE: The bones are similarly demineralized with stable alignment and georgiana fixation. No acute fracture. DISC SPACES: Stable generalized discogenic degenerative changes. FACET JOINTS: Stable facet hypertrophy along the lower lumbar spine. SOFT TISSUES: No significant abnormality. ADDITIONAL FINDINGS: Stable internal fixation of the left hip. IMPRESSION: 1. No acute findings or significant interval changes. Signer Name: Patrick Murphy MD Signed: 08/18/2020 6:28 PM Workstation Name: [id number] Transcribed By: MN Dictated By: Patrick Murphy MD Electronically Authenticated By: Patrick Murphy MD Signed Date/Time: 08/18/201827 DD/ 25 TD/TT: Findings [facility] [address] [place] [address] XRay Report Signed Patient: DANK NOLAND MR#: [id number] : 1985 Acct:[id number] Age/Sex: 35 / M ADM Date: 08/18/20 Loc: ED Attending Dr: Ordering Physician: ANSELMO DE GUZMAN NP Date of Service: 08/18/20 Procedure(s): XR hip 2-3V RT Accession Number(s): [id number] cc: ANSELMO DE GUZMAN NP Fluoro Time In Minutes: RIGHT HIP 2 VIEWS INDICATION / CLINICAL INFORMATION: Right hip pain after fall. COMPARISON: Bilateral hips series from 01/21/2020. FINDINGS: BONES and JOINT(S): No acute fracture or subluxation. The bones are similarly demineralized. There is stable lumbar spondylosis. Internal fixation of the left hip, right femur and the spine is unchanged. SOFT TISSUES: No significant abnormality. ADDITIONAL FINDINGS: None. IMPRESSION: 1. No acute findings or significant interval changes. Signer Name: Patrick Murphy MD Signed: 08/18/2020 6:29 PM Workstation Name: [id number] Transcribed By: MN Dictated By: Patrick Murphy MD Electronically Authenticated By: Patrick Murphy MD Signed Date/Time: 08/18/201828 DD/ 27 TD/TT: - Medical Decision Making This is a 35-year-old -Maltese male with a history of schizophrenia, anxiety and depression, chronic bilateral peripheral neuropathy, chronic low back pain and wheelchair-bound due to chronic low back pain and bilateral chronic bilateral lower extremity deformity due to chronic osteogenesis imperfecta syndrome who presents to the ED with complaint of acute exacerbation of his chronic low back pain and right hip pain after slipping off of his wheelc hair 3 weeks ago in [place] and falling on concrete ground. Patient states that he was initially evaluated in [place] where he had been visiting and was told that he has coccygeal fracture and has been taking ibuprofen as needed for pain. Patient states that in the last 4 days, the pain has been worsening in his right hip and lower back. In the ED, patient is alert and oriented x3 and is not in distress. Patient was treated for pain in the ED and L-spine x-ray shows no acute fractures or subluxations. Right hip x-ray also shows no acute fractures or subluxations. On reevaluation, patient's pain is well controlled medications. Patient was discharged home on pain medications and was advised to return to the ED immediately if symptoms get worse, otherwise follow-up with his primary care physician in 5 to 7 days for reevaluation. - Differential Diagnosis Chronic back pain; muscle spasm; hip fracture; osteoarthritis; bursitis Critical care attestation.: If time is entered above; I have spent that time in minutes in the direct care of this critically ill patient, excluding procedure time. ED Disposition Clinical Impression: Spasm of muscle of lower back, Acute exacerbation of chronic low back pain Contusion of right hip and thigh Qualifiers: Encounter type: subsequent encounter Qualified Code(s): S70.01XD - Contusion of right hip, subsequent encounter; S70.11XD - Contusion of right thigh, subsequent encounter Disposition: -01 TO HOME OR SELFCARE Is pt being admited?: No Does the pt Need Aspirin: No Condition: Stable Instructions: Chronic Back Pain (ED), Hip Sprain (ED), Muscle Spasm (ED) Additional Instructions: The x-rays of lumbar spine and right hip showed no acute fractures or subluxations. Therefore take medications with food, drink plenty of fluids and follow-up with your primary care physician in 5 to 7 days for reevaluation. Return to the ED immediately if symptoms get worse. Prescriptions: Ibuprofen [Motrin] 800 mg PO Q8HR PRN #30 tablet PRN Reason: Pain , Severe (7-10) methOCARBAMOL [Robaxin TAB] 500 mg PO Q12H PRN #24 tab PRN Reason: Muscle Spasm traMADoL [Ultram] 50 mg PO Q6HR PRN #12 tablet PRN Reason: Pain Referrals: [facility] [Provider Group] - 3-5 Days Time of Disposition: 04:46 Print Language: UPPER SORBIAN
[2020-08-19 05:28] VITALS: BP 132/68
== END 2020-08-19 05:27 | disposition home or self-care (01) ==
LOC: ED 17:36
DX: S70.01XA Contusion of right hip, initial encounter (principal); S70.11XA Contusion of right thigh, initial encounter; M62.830 Muscle spasm of back; I10 Essential (primary) hypertension; F25.0 Schizoaffective disorder, bipolar type; Z79.899 Other long term (current) drug therapy; Z98.890 Other specified postprocedural states; W05.0XXA Fall from non-moving wheelchair, initial encounter; Y93.89 Activity, other specified; Y92.89 Other specified places as the place of occurrence of the external cause; Y99.8 Other external cause status
CPT/HCPCS: 72100; 99283; Q0162

== ENCOUNTER 2020-08-24 20:27 | Emergency (ER) | payer MEDICAID ==
[2020-08-24 20:56] VITALS: BP 154/58
[2020-08-24 21:59] LABS: Basophils % (Auto) 0.2 % (0.0-1.8); Eosinophils # (Auto) 0.4 K/mm3 (0.0-0.4); Eosinophils % (Auto) 5.5 % (0.0-4.3); Hematocrit 34.2 % (35.5-45.6); Hemoglobin 10.9 gm/dl (11.8-15.2); Lymphocytes # (Auto) 2.3 K/mm3 (1.2-5.4); Lymphocytes % (Auto) 32.2 % (13.4-35.0); Mean Corpuscular HGB Conc 32 % (32-34); Mean Corpuscular Volume 74 fl (84-94); Monocytes # (Auto) 0.6 K/mm3 (0.0-0.8); Monocytes % (Auto) 7.8 % (0.0-7.3); Platelet Count 283 K/mm3 (140-440); Red Blood Count 4.61 M/mm3 (3.65-5.03); Red Cell Distribution Width 14.1 % (13.2-15.2)
[2020-08-24 22:05] LABS: Alanine Aminotransferase 41 units/L (7-56); Albumin 4.2 g/dL (3.9-5); Blood Urea Nitrogen 11 mg/dL (9-20); Calcium 9.1 mg/dL (8.4-10.2); Hemolysis Index 6
[2020-08-24 22:11] LABS: BUN/Creatinine Ratio 28
== END 2020-08-24 23:00 | disposition left against medical advice (07) ==
LOC: ED 20:27
DX: R10.32 Left lower quadrant pain (principal); Z53.21 Procedure and treatment not carried out due to patient leaving prior to being seen by health care provider
CPT/HCPCS: 36415; 80053; 85025

== ENCOUNTER 2020-08-25 06:31 | Emergency (ER) | payer MEDICAID ==
--- NOTE | 2020-08-25 09:05 | Emergency Department Report ---
Chief Complaint: Back Pain/Injury Stated Complaint: LEFT SIDE PAIN Time Seen by Provider: 08/25/20 08:55 - HPI History of Present Illness: Patient is a 35-year-old male with a history of chronic pain who presents emergency room with complaints of lower back pain and coccyx pain that has been ongoing but exacerbated in the last 4 days. He denies any acute fall or injury. He denies any nausea, vomiting, diarrhea, abdominal pain, urinary symptoms. He has not seen a primary care physician or an orthopedic. Patient had lab work performed yesterday in the emergency department 08/24/2020 which was stable. Patient was evaluated the emergency department on 08/18/2020 for the same symptoms and had an x-ray of the lumbar spine at that time which showed no acute process. On 08/18/2020 patient was given prescription for ibuprofen, tramadol, Robaxin. Vitals are stable On exam: Nontoxic appearing, no acute distress Atraumatic,normocephalic Normal appearance of the eyes, EOMI, no periorbital edema or ecchymosis No midline or paraspinal C-spine tenderness palpation, no step-offs, no deformities, full range of motion Regular rate and rhythm, no murmurs or rubs or gallops Breath sounds are clear bilaterally, no wheezing, no rales, no rhonchi, no stridor, no accessory muscle use, no respiratory distress Abdomen is soft, nondistended, nontender, no rigidity, no peritoneal signs, normal bowel sounds No CVA tenderness bilaterally Left-sided lumbar paraspinal muscular tenderness to palpation, no step-offs, no deformities, no midline C-spine, T-spine, L-spine tenderness palpation Alert and oriented x4, no acute focal neuro deficit, patient is wheelchair-bound Skin is warm and dry Patient is presenting for chronic pain He has had no acute trauma He has had a recent x-ray performed in the emergency department Patient has had recent lab work performed in the emergency department He has no midline tenderness, no step-offs, no deformities, no acute focal neuro deficits He has no red flag warning signs of back pain, no trauma, no unexplained weight loss, no acute focal neuro deficits, no unexplained weight loss, age is not greater than 50, no IV drug use, no steroid use, no history of cancer Patient will be referred to primary care physician and orthopedic/spine Advised patient Please continue taking your medication as prescribed during your last visit. May use ice pack, heating pad, rest. Follow-up with your primary care doctor. Follow-up with orthopedic/spine doctor. Return to emergency room for any new or worsening symptoms. Medical screening examination performed and there is no threat to life or limb at this time - Exam Vital Signs: Vital Signs 08/25/20 06:44 Temperature 97.8 F Pulse Rate 72 Respiratory 18 Rate Blood Pressure 152/78 O2 Sat by Pulse 97 Oximetry MSE screening note: Focused history and physical exam performed. ED Disposition for MSE Clinical Impression: Chronic back pain Qualifiers: Back pain location: low back pain Back pain laterality: left Sciatica presence: without sciatica Qualified Code(s): M54.5 - Low back pain Disposition: MED SCREENING EXAM-LEFT Is pt being admited?: No Does the pt Need Aspirin: No Condition: Stable Instructions: Chronic Back Pain (ED) Additional Instructions: Please continue taking your medication as prescribed during your last visit. May use ice pack, heating pad, rest. Follow-up with your primary care doctor. Follow-up with orthopedic/spine doctor. Return to emergency room for any new or worsening symptoms. Referrals: TIMI GARG MD [Primary Care Provider] - 2-3 Days [facility] [Provider Group] - 2-3 Days FELIX MIGUEL II, MD [Staff Physician] - 2-3 Days Time of Disposition: 09:04 Print Language: SENEGALESE
[2020-08-25 09:20] VITALS: BP 148/76
== END 2020-08-25 09:11 | disposition left against medical advice (07) ==
LOC: ED 06:31
DX: M54.5 Low back pain (principal); G89.29 Other chronic pain; Z53.21 Procedure and treatment not carried out due to patient leaving prior to being seen by health care provider

== ENCOUNTER 2020-08-31 15:43 | Emergency (ER) | payer MEDICAID ==
[2020-08-31 16:09] VITALS: BP 126/62
--- NOTE | 2020-08-31 18:03 | XRay Report ---
LEFT FOOT 3 VIEWS INDICATION / CLINICAL INFORMATION: left foot pain after caught in wheelchair. COMPARISON: 06/03/2020 FINDINGS: Marked osteopenia, unchanged. No fracture or other acute abnormality. Signer Name: Rahul Oneil MD Signed: 08/31/2020 5:58 PM Workstation Name: [email or web address]
--- NOTE | 2020-08-31 18:16 | Emergency Department Report ---
ED Extremity Problem HPI - General Chief complaint: Extremity Injury, Lower Stated complaint: LEFT FOOT PAIN Time Seen by Provider: 08/31/20 17:29 Source: patient Mode of arrival: Wheelchair Limitations: No Limitations - History of Present Illness Initial comments: Patient is a 35-year-old male who presents emergency room with complaints of left foot pain that began 2 days ago. He states that his foot accidentally got caught in his wheelchair. He states that he has had some swelling of his foot and noticed some mild redness. He states that he also has a history of gout. He denies any numbness or weakness. Patient has a past medical history of osteogenesis imperfecta. He has an allergy to codeine. - Related Data Home Medications Medication Instructions Recorded Confirmed Last Taken FLUoxetine [PROzac] 20 mg PO QDAY 04/03/20 05/01/20 Unknown Gabapentin [Neurontin] 300 mg PO Q8HR 04/03/20 05/01/20 Unknown Losartan/Hydrochlorothiazide 1 each PO DAILY 04/03/20 05/01/20 Unknown [Losartan-Hctz 50-12.5 mg Tab] Metoprolol Tartrate [Lopressor] 100 mg PO DAILY 04/03/20 05/01/20 Unknown OLANzapine [ZyPREXA] 10 mg PO DAILY 04/03/20 05/01/20 Unknown Colchicine 0.6 mg PO DAILY 05/01/20 05/01/20 Unknown Prazosin HCl 2 mg PO DAILY 05/01/20 05/01/20 Unknown traZODone 50 mg PO DAILY 05/01/20 05/01/20 Unknown Previous Rx's Medication Instructions Recorded Last Taken Type tiZANidine [Zanaflex 4mg TAB] 4 mg PO Q8H PRN #15 tablet 04/23/20 Unknown Rx FLUoxetine HCL [FLUoxetine] 30 mg PO DAILY #60 tablet 05/03/20 Unknown Rx OLANZapine [Zyprexa] 15 mg PO DAILY #30 tablet 05/03/20 Unknown Rx Ibuprofen [Motrin] 800 mg PO Q8HR PRN #30 tablet 08/19/20 Unknown Rx methOCARBAMOL [Robaxin TAB] 500 mg PO Q12H PRN #24 tab 08/19/20 Unknown Rx traMADoL [Ultram] 50 mg PO Q6HR PRN #12 tablet 08/19/20 Unknown Rx Colchicine 0.6 mg PO ONCE 1 Days #3 capsule 08/31/20 Unknown Rx Naproxen [EC-Naproxen] 375 mg PO BID PRN #14 tablet.dr 08/31/20 Unknown Rx Prednisone [predniSONE 10 mg 10 mg PO .TAPER #1 tab.ds.pk 08/31/20 Unknown Rx (6-Day Pack, 21 Tabs)] Allergies Allergy/AdvReac Type Severity Reaction Status Date / Time codeine Allergy Unknown Verified 01/16/20 15:56 ED Review of Systems ROS: Stated complaint: LEFT FOOT PAIN Other details as noted in HPI Comment: All other systems reviewed and negative ED Past Medical Hx - Past Medical History Previous Medical History?: Yes Hx Hypertension: Yes Hx Psychiatric Treatment: Yes (schizoprenia, depression) Additional medical history: gout, chronic pain, neuropathy. osteogenesis imperfecta - Surgical History Past Surgical History?: Yes Additional Surgical History: knee and back surgery - Social History Smoking Status: Current Some Day Smoker Substance Use Type: Alcohol - Medications Home Medications: Home Medications Medication Instructions Recorded Confirmed Last Taken Type FLUoxetine [PROzac] 20 mg PO QDAY 04/03/20 05/01/20 Unknown History Gabapentin [Neurontin] 300 mg PO Q8HR 04/03/20 05/01/20 Unknown History Losartan/Hydrochlorothiazide 1 each PO DAILY 04/03/20 05/01/20 Unknown History [Losartan-Hctz 50-12.5 mg Tab] Metoprolol Tartrate [Lopressor] 100 mg PO DAILY 04/03/20 05/01/20 Unknown History OLANzapine [ZyPREXA] 10 mg PO DAILY 04/03/20 05/01/20 Unknown History tiZANidine [Zanaflex 4mg TAB] 4 mg PO Q8H PRN #15 tablet 04/23/20 05/01/20 Unknown Rx Colchicine 0.6 mg PO DAILY 05/01/20 05/01/20 Unknown History Prazosin HCl 2 mg PO DAILY 05/01/20 05/01/20 Unknown History traZODone 50 mg PO DAILY 05/01/20 05/01/20 Unknown History FLUoxetine HCL [FLUoxetine] 30 mg PO DAILY #60 tablet 05/03/20 Unknown Rx OLANZapine [Zyprexa] 15 mg PO DAILY #30 tablet 05/03/20 Unknown Rx Ibuprofen [Motrin] 800 mg PO Q8HR PRN #30 tablet 08/19/20 Unknown Rx methOCARBAMOL [Robaxin TAB] 500 mg PO Q12H PRN #24 tab 08/19/20 Unknown Rx traMADoL [Ultram] 50 mg PO Q6HR PRN #12 tablet 08/19/20 Unknown Rx Colchicine 0.6 mg PO ONCE 1 Days #3 capsule 08/31/20 Unknown Rx Naproxen [EC-Naproxen] 375 mg PO BID PRN #14 tablet.dr 08/31/20 Unknown Rx Prednisone [predniSONE 10 mg 10 mg PO .TAPER #1 tab.ds.pk 08/31/20 Unknown Rx (6-Day Pack, 21 Tabs)] ED Physical Exam - General Limitations: No Limitations General appearance: alert, in no apparent distress - Head Head exam: Present: atraumatic, normocephalic - Eye Eye exam: Present: normal appearance - ENT ENT exam: Present: mucous membranes moist - Respiratory Respiratory exam: Absent: respiratory distress, accessory muscle use - Extremities Exam Extremities exam: Present: other (ttp to the left dorsal foot, mild erythema, mild increased warmth, FROM of the left foot, toes, ankle, he has chronic deformities of the BLE, no calf ttp bilaterally, neurovasculalry intact) - Neurological Exam Neurological exam: Present: alert, oriented X3 - Psychiatric Psychiatric exam: Present: normal affect, normal mood - Skin Skin exam: Present: warm, dry, intact ED Course Vital Signs 08/31/20 16:07 Temperature 98.5 F Pulse Rate 93 H Respiratory 20 Rate Blood Pressure 126/62 O2 Sat by Pulse 98 Oximetry ED Medical Decision Making - Radiology Data Radiology results: report reviewed Patient: DANK NOLAND MR#: [id number] : 1985 Acct:[id number] Age/Sex: 35 / M ADM Date: 08/31/20 Loc: ED Attending Dr: Ordering Physician: ANTONINA MAC Date of Service: 08/31/20 Procedure(s): XR foot 3+V LT Accession Number(s): [id number] cc: ANTONINA MAC Fluoro Time In Minutes: LEFT FOOT 3 VIEWS INDICATION / CLINICAL INFORMATION: left foot pain after caught in wheelchair. COMPARISON: 06/03/2020 FINDINGS: Marked osteopenia, unchanged. No fracture or other acute abnormality. Signer Name: Rahul Oneil MD Signed: 08/31/2020 5:58 PM Workstation Name: [id number] Transcribed By: TM Dictated By: Rahul Oneil MD Electronically Authenticated By: Rahul Oneil MD Signed Date/Time: 08/31/201757 DD/ 47 TD/TT: - Medical Decision Making Patient is a 35-year-old male who presents emergency room with complaints of left foot pain that began 2 days ago. He states that his foot accidentally got caught in his wheelchair. He states that he has had some swelling of his foot and noticed some mild redness. He states that he also has a history of gout. He denies any numbness or weakness. Patient has a past medical history of osteogenesis imperfecta. He has an allergy to codeine. vitals are normal. on exam: ttp to the left dorsal foot, mild erythema, mild increased warmth, FROM of the left foot, toes, ankle, he has chronic deformities of the BLE, no calf ttp bilaterally, neurovasculalry intact. X-ray ordered due to patient's history and to rule out any fracture or dislocation. X-ray of the left foot: Marked osteopenia, unchanged. No fracture or other acute abnormality. Appears symptoms are most consistent with mild acute gout. He has no signs of septic joint, no clinical signs of DVT at this time. Patient given prescription for naproxen, prednisone, colchicine. Advised patient to please take medication as prescribed. Please follow-up with a primary care doctor within the next 2 to 3 days. Return to emergency room for any new or worsening symptoms. - Differential Diagnosis Strain, sprain, fracture, dislocation, arthritis, osteopenia, gout Critical care attestation.: If time is entered above; I have spent that time in minutes in the direct care of this critically ill patient, excluding procedure time. ED Disposition Clinical Impression: Left foot pain Acute gout Qualifiers: Gout site: foot Gout etiology: unspecified cause Laterality: left Qualified Code(s): M10.9 - Gout, unspecified Disposition: - TO HOME OR SELFCARE Is pt being admited?: No Does the pt Need Aspirin: No Condition: Stable Instructions: Acute Gouty Arthritis (ED), Arthralgia (ED) Additional Instructions: Your x-ray today showed no signs of fracture or dislocation. It appears that your symptoms are related to gout. Medications may cause diarrhea. Please take medication as prescribed. Please follow-up with a primary care doctor within t he next 2 to 3 days. Return to emergency room for any new or worsening symptoms. Prescriptions: Colchicine 0.6 mg PO ONCE 1 Days #3 capsule Naproxen [EC-Naproxen] 375 mg PO BID PRN #14 tablet.dr KOCH Reason: pain Prednisone [predniSONE 10 mg (6-Day Pack, 21 Tabs)] 10 mg PO .TAPER #1 tab.ds.pk Referrals: ZACHARY LINDSEY MD [Staff Physician] - 2-3 Days [facility] [Provider Group] - 2-3 Days Time of Disposition: 18:18 Print Language: MACANESE
== END 2020-08-31 18:28 | disposition home or self-care (01) ==
LOC: ED 15:43
DX: M10.9 Gout, unspecified (principal); M79.672 Pain in left foot; I10 Essential (primary) hypertension; F20.9 Schizophrenia, unspecified; F32.9 Major depressive disorder, single episode, unspecified; F17.200 Nicotine dependence, unspecified, uncomplicated; Z98.890 Other specified postprocedural states; Z79.1 Long term (current) use of non-steroidal anti-inflammatories (NSAID); Z79.899 Other long term (current) drug therapy; Z88.8 Allergy status to other drugs, medicaments and biological substances

== ENCOUNTER 2020-09-04 22:01 | Emergency (ER) | payer MEDICAID ==
[2020-09-05 00:21] VITALS: BP 137/65
--- NOTE | 2020-09-05 05:14 | XRay Report ---
LEFT RIBS 5 VIEWS INDICATION / CLINICAL INFORMATION: rib pain / fall. COMPARISON: None available. FINDINGS: RIBS: No acute, displaced fracture or other acute abnormality. LUNGS: No acute findings. No pneumothorax. Signer Name: Stefani Bates MD Signed: 09/05/2020 5:10 AM Workstation Name: [id number]
--- NOTE | 2020-09-05 06:43 | Emergency Department Report ---
ED Fall HPI - General Chief Complaint: Extremity Injury, Lower Stated Complaint: LEFT FOOT/LEFT FLANK PAIN, ANXIETY Time Seen by Provider: 09/05/20 03:19 Source: patient Mode of arrival: Ambulatory - History of Present Illness Complaint: fall -: Sudden Fall From: wheelchair When Fall Occurred: 4-6 hours [employer] Fall Witnessed: no Place Fall Occurred: home Loss of Consciousness: none Prolonged Down Time?: no Symptoms Prior to Fall: none Location: other (left ribs) Severity: moderate Quality: dull Associated Symptoms: denies: neck pain, numbness, shortness of breath, abdominal pain, lightheaded, vertigo, confusion - Related Data Home Medications Medication Instructions Recorded Confirmed Last Taken FLUoxetine [PROzac] 20 mg PO QDAY 04/03/20 05/01/20 Unknown Gabapentin [Neurontin] 300 mg PO Q8HR 04/03/20 05/01/20 Unknown Losartan/Hydrochlorothiazide 1 each PO DAILY 04/03/20 05/01/20 Unknown [Losartan-Hctz 50-12.5 mg Tab] Metoprolol Tartrate [Lopressor] 100 mg PO DAILY 04/03/20 05/01/20 Unknown OLANzapine [ZyPREXA] 10 mg PO DAILY 04/03/20 05/01/20 Unknown Colchicine 0.6 mg PO DAILY 05/01/20 05/01/20 Unknown Prazosin HCl 2 mg PO DAILY 05/01/20 05/01/20 Unknown traZODone 50 mg PO DAILY 05/01/20 05/01/20 Unknown Previous Rx's Medication Instructions Recorded Last Taken Type tiZANidine [Zanaflex 4mg TAB] 4 mg PO Q8H PRN #15 tablet 04/23/20 Unknown Rx FLUoxetine HCL [FLUoxetine] 30 mg PO DAILY #60 tablet 05/03/20 Unknown Rx OLANZapine [Zyprexa] 15 mg PO DAILY #30 tablet 05/03/20 Unknown Rx Ibuprofen [Motrin] 800 mg PO Q8HR PRN #30 tablet 08/19/20 Unknown Rx methOCARBAMOL [Robaxin TAB] 500 mg PO Q12H PRN #24 tab 08/19/20 Unknown Rx traMADoL [Ultram] 50 mg PO Q6HR PRN #12 tablet 08/19/20 Unknown Rx Colchicine 0.6 mg PO ONCE 1 Days #3 capsule 08/31/20 Unknown Rx Naproxen [EC-Naproxen] 375 mg PO BID PRN #14 tablet.dr 08/31/20 Unknown Rx Prednisone [predniSONE 10 mg 10 mg PO .TAPER #1 tab.ds.pk 08/31/20 Unknown Rx (6-Day Pack, 21 Tabs)] Allergies Allergy/AdvReac Type Severity Reaction Status Date / Time codeine Allergy Unknown Verified 01/16/20 15:56 ED Review of Systems ROS: Stated complaint: LEFT FOOT/LEFT FLANK PAIN, ANXIETY Other details as noted in HPI Comment: All other systems reviewed and negative ED Past Medical Hx - Past Medical History Previous Medical History?: Yes Hx Hypertension: Yes Hx Psychiatric Treatment: Yes (schizoprenia, depression) Additional medical history: gout, chronic pain, neuropathy. osteogenesis imperfecta - Surgical History Past Surgical History?: Yes Additional Surgical History: knee and back surgery - Social History Smoking Status: Current Some Day Smoker Substance Use Type: Alcohol - Medications Home Medications: Home Medications Medication Instructions Recorded Confirmed Last Taken Type FLUoxetine [PROzac] 20 mg PO QDAY 04/03/20 05/01/20 Unknown History Gabapentin [Neurontin] 300 mg PO Q8HR 04/03/20 05/01/20 Unknown History Losartan/Hydrochlorothiazide 1 each PO DAILY 04/03/20 05/01/20 Unknown History [Losartan-Hctz 50-12.5 mg Tab] Metoprolol Tartrate [Lopressor] 100 mg PO DAILY 04/03/20 05/01/20 Unknown History OLANzapine [ZyPREXA] 10 mg PO DAILY 04/03/20 05/01/20 Unknown History tiZANidine [Zanaflex 4mg TAB] 4 mg PO Q8H PRN #15 tablet 04/23/20 05/01/20 Unknown Rx Colchicine 0.6 mg PO DAILY 05/01/20 05/01/20 Unknown History Prazosin HCl 2 mg PO DAILY 05/01/20 05/01/20 Unknown History traZODone 50 mg PO DAILY 05/01/20 05/01/20 Unknown History FLUoxetine HCL [FLUoxetine] 30 mg PO DAILY #60 tablet 05/03/20 Unknown Rx OLANZapine [Zyprexa] 15 mg PO DAILY #30 tablet 05/03/20 Unknown Rx Ibuprofen [Motrin] 800 mg PO Q8HR PRN #30 tablet 08/19/20 Unknown Rx methOCARBAMOL [Robaxin TAB] 500 mg PO Q12H PRN #24 tab 08/19/20 Unknown Rx traMADoL [Ultram] 50 mg PO Q6HR PRN #12 tablet 08/19/20 Unknown Rx Colchicine 0.6 mg PO ONCE 1 Days #3 capsule 08/31/20 Unknown Rx Naproxen [EC-Naproxen] 375 mg PO BID PRN #14 tablet.dr 08/31/20 Unknown Rx Prednisone [predniSONE 10 mg 10 mg PO .TAPER #1 tab.ds.pk 08/31/20 Unknown Rx (6-Day Pack, 21 Tabs)] ED Physical Exam - General Limitations: No Limitations General appearance: alert, in no apparent distress - Head Head exam: Present: atraumatic, normocephalic - Eye Eye exam: Present: normal appearance, PERRL, EOMI - ENT ENT exam: Present: normal exam, mucous membranes moist - Neck Neck exam: Present: normal inspection, full ROM - Respiratory Respiratory exam: Present: normal lung sounds bilaterally. Absent: respiratory distress, wheezes, rales, chest wall tenderness, accessory muscle use - Cardiovascular Cardiovascular Exam: Present: regular rate, normal rhythm. Absent: systolic murmur, diastolic murmur, rubs, gallop - GI/Abdominal GI/Abdominal exam: Present: soft, normal bowel sounds - Rectal Rectal exam: Present: deferred - Extremities Exam Extremities exam: Present: normal inspection, normal capillary refill - Back Exam Back exam: Present: normal inspection. Absent: CVA tenderness (R), CVA tenderness (L) - Neurological Exam Neurological exam: Present: alert, oriented X3, CN II-XII intact - Psychiatric Psychiatric exam: Present: normal affect, normal mood - Skin Skin exam: Present: warm, dry, intact, normal color. Absent: rash ED Course Vital Signs 09/05/20 00:17 Temperature 98 F Pulse Rate 57 L Respiratory 20 Rate Blood Pressure 137/65 O2 Sat by Pulse 99 Oximetry ED Medical Decision Making - Radiology Data Radiology results: report reviewed Referring Physician:COLLINS PARKERPatient Name:DANK NOLANDPatient ID:[id number] of :[id number]:MaleAccession:[id number] Date:7-94-81Mvbwpg Status:Finalized Findings [facility] [address] [place] [address] XRay Report Signed Patient: DANK NOLAND MR#: [id number] : 1985 Acct:[id number] Age/Sex: 35 / M ADM Date: 09/04/20 Loc: ED Attending Dr: Ordering Physician: ANTONINA OSORIO Date of Service: 09/05/20 Procedure(s): XR ribs UNI w PA chest 3+V LT Accession Number(s): [id number] cc: ANTONINA OSORIO Fluoro Time In Minutes: LEFT RIBS 5 VIEWS INDICATION / CLINICAL INFORMATION: rib pain / fall. COMPARISON: None available. FINDINGS: RIBS: No acute, displaced fracture or other acute abnormality. LUNGS: No acute findings. No pneumothorax. Signer Name: Stefani Bates MD Signed: 09/05/2020 5:10 AM Workstation Name: [id number] Transcribed By: DT Dictated By: Josep Bates MD Electronically Authenticated By: Josep Bates MD Signed Date/Time: 09/05/2010 DD/ 0508 TD/TT: Critical care attestation.: If time is entered above; I have spent that time in minutes in the direct care of this critically ill patient, excluding procedure time. ED Disposition Clinical Impression: Fall from wheelchair, Contusion of rib on left side Disposition: DC-01 TO HOME OR SELFCARE Is pt being admited?: No Does the pt Need Aspirin: No Condition: Stable Instructions: Fall Prevention (ED), Contusion in Adults (ED), Ice Pack Application (ED) Referrals: PRIMARY CARE, [Primary Care Provider] - 3-5 Days
== END 2020-09-05 08:25 | disposition home or self-care (01) ==
LOC: ED 22:01
DX: S20.212A Contusion of left front wall of thorax, initial encounter (principal); I10 Essential (primary) hypertension; F20.9 Schizophrenia, unspecified; F32.9 Major depressive disorder, single episode, unspecified; F17.200 Nicotine dependence, unspecified, uncomplicated; Z98.890 Other specified postprocedural states; Z79.899 Other long term (current) drug therapy; Z88.6 Allergy status to analgesic agent; W05.0XXA Fall from non-moving wheelchair, initial encounter; Y93.89 Activity, other specified; Y92.89 Other specified places as the place of occurrence of the external cause; Y99.8 Other external cause status
CPT/HCPCS: 99283